=== PATIENT | male | born 1955 | race Hispanic/Latino ===

== ENCOUNTER 2021-03-14 12:52 | Emergency (ER) | payer MEDICAID ==
[~2021-03-14] VITALS: Ht 165.1 cm; Wt 86.2 kg
[2021-03-14] MEDS ORDERED: IOHEXOL-350 75 ML VIAL IV ONE (13:12)
[2021-03-14 13:14] LABS: BASOPHILS % (AUTO) 0.8 % (0.0-5.0); EOSINOPHILS % (AUTO) 1.6 % (0.0-8.0); HEMATOCRIT 43.9 % (42-54); MEAN CORPUSCULAR HEMOGLOBIN 29.5 pg (27.0-33.0); MEAN CORPUSCULAR HGB CONC 32.1 g/dL (32.0-36.0); MEAN CORPUSCULAR VOLUME 91.8 fL (79-99); MONOCYTES % (AUTO) 10.5 % (3.0-13.0); NEUTROPHILS % (AUTO) 45.7 % (40.0-77.0); PLATELET COUNT (AUTO) 219 K/uL (130-400); RED BLOOD CELL COUNT(AUTO) 4.78 MIL/uL (4.50-6.20); RED CELL DISTRIBUTION WIDTH 12.7 % (11.0-15.5); WHITE BLOOD COUNT (AUTO) 5.1 K/uL (4.8-10.8)
[2021-03-14] MEDS ORDERED: SODIUM CHLORIDE 0.9% 1000ML 1,000 ML IV SCH (13:15)
[2021-03-14 13:24] LABS: CREATININE 0.7 mg/dL (0.5-1.5)
[2021-03-14 13:29] LABS: ALBUMIN 4.1 g/dL (3.5-5.0); BILIRUBIN,TOTAL 0.6 mg/dL (0.2-1.0); TOTAL PROTEIN, SERUM 7.1 g/dL (6.0-8.3)
[2021-03-14 13:45] LABS: INR 0.98 (0.85-1.15); PROTHROMBIN TIME 10.7 SEC (9.6-11.6)
[2021-03-14 13:46] LABS: PARTIAL THROMBOPLASTIN TIME 25.1 SEC (26.3-35.5)
[2021-03-14 14:43] VITALS: BP 131/73
[2021-03-14] MEDS ORDERED: HYDROCODONE/ACETAMINOPHEN 5/325 MG TAB PO ONE (15:15)
[2021-03-14] MEDS ORDERED: ASPI-1197 PO (15:37)
[2021-03-14 15:50] VITALS: BP 127/67
== END 2021-03-14 16:43 | disposition home or self-care (01) ==
LOC: EDH 12:52
DX: R20.2 Paresthesia of skin (principal); R61 Generalized hyperhidrosis; R53.1 Weakness
CPT/HCPCS: 36415; 70450; 70496; 70498; 80053; 85025; 85610; 85730; 93005; 99285; Q9967

== ENCOUNTER 2024-06-16 18:35 | Emergency (ER) | payer OTHER ==
[~2024-06-16] VITALS: Ht 175.3 cm; Wt 85.3 kg
[~2024-06-16 18:35] MED LIST: ASPI-1197 PO; CELE200 PO; CEPH500T PO; IBUP-2077 PO; LISI10TA24 PO; LORA10TA7 PO; PROB1TAB2 PO; PROB500T26 PO; TAMS-1 PO
[2024-06-16 18:58] LABS: HEMATOCRIT 40.5 % (42-54); MEAN CORPUSCULAR HGB CONC 33.1 g/dL (32.0-36.0); MEAN CORPUSCULAR VOLUME 90.8 fL (79-99); RED BLOOD CELL COUNT(AUTO) 4.46 MIL/uL (4.50-6.20); RED CELL DISTRIBUTION WIDTH 12.8 % (11.0-15.5)
[2024-06-16 19:10] LABS: CREATININE 0.8 mg/dL (0.5-1.3); POTASSIUM 4.2 mmol/L (3.5-5.1)
[2024-06-16] MEDS ORDERED: LISI10TA24 PO (19:26)
[2024-06-16 19:42] VITALS: BP 116/60; PULSE 60; RESP 18; TEMP 98.5; O2SAT 100
== END 2024-06-16 20:00 | disposition home or self-care (01) ==
LOC: EDH 18:35
DX: I10 Essential (primary) hypertension (principal); R94.31 Abnormal electrocardiogram [ECG] [EKG]; M19.90 Unspecified osteoarthritis, unspecified site; E78.00 Pure hypercholesterolemia, unspecified; Z79.82 Long term (current) use of aspirin; Z79.899 Other long term (current) drug therapy; Z79.2 Long term (current) use of antibiotics; Z95.828 Presence of other vascular implants and grafts; Z96.652 Presence of left artificial knee joint
CPT/HCPCS: 36415; 80048; 84484; 85027; 93005

== ENCOUNTER 2024-11-03 20:56 | Emergency (ER) | payer OTHER, MEDICARE ==
[~2024-11-03] VITALS: Ht 175.3 cm; Wt 83.9 kg
[2024-11-03 21:58] LABS: BASOPHILS # (AUTO) 0.03 K/uL (0.00-0.20); BASOPHILS % (AUTO) 0.5 % (0.0-5.0); EOSINOPHILS # (AUTO) 0.06 K/uL (0.00-0.70); EOSINOPHILS % (AUTO) 1.1 % (0.0-8.0); HEMATOCRIT 39.2 % (42-54); IMMATURE GRANULOCYTE ABSOLUTE 0.01 K/uL (0-1); LYMPHOCYTES # (AUTO) 2.3 K/uL (1.0-4.8); LYMPHOCYTES % (AUTO) 41.1 % (21.0-51.0); MEAN CORPUSCULAR HEMOGLOBIN 30.6 pg (27.0-33.0); MEAN CORPUSCULAR HGB CONC 33.7 g/dL (32.0-36.0); MONOCYTES # (AUTO) 0.5 K/uL (0.1-1.0); MONOCYTES % (AUTO) 9.5 % (3.0-13.0); NEUTROPHILS # (AUTO) 2.6 K/uL (1.8-7.7); NEUTROPHILS % (AUTO) 47.6 % (40.0-77.0); PLATELET COUNT (AUTO) 205 K/uL (130-400); RED BLOOD CELL COUNT(AUTO) 4.31 MIL/uL (4.50-6.20); RED CELL DISTRIBUTION WIDTH 12.4 % (11.0-15.5); WHITE BLOOD COUNT (AUTO) 5.5 K/uL (4.8-10.8)
[2024-11-03 22:04] LABS: CREATININE 0.8 mg/dL (0.5-1.3); POTASSIUM 3.6 mmol/L (3.5-5.1)
--- NOTE | 2024-11-03 22:17 | EKG ---
[facility] Test Date: 2024-11-03 Test Time: 21:01:58 Pat Name: BEA LAWRENCE Department[facility] Room: Gender: M Business Relations Manager: [phone] : 1955 Requested By: RAYNA CAUSEY Order Number: [id number] Reading MD: Walter Pham Measurements Intervals [place] Rate: 49 P: 35 [place]: 179 QRS: -31 QRSD: 116 T: 24 QT: 452 QTc: 409 Interpretive Statements Sinus bradycardia Nonspecific intraventricular conduction delay Compared to ECG 06/16/2024 18:54:21 No significant changes Electronically Signed On 11-04-2024 17:16:32 [employer]ATEN PRESS OPERATOR by Walter Pham Please click the below link to view image of tracing.
[2024-11-04 00:20] LABS: APPEARANCE,URINE CLEAR (CLEAR); BILIRUBIN,URINE NEGATIVE (NEGATIVE); COLOR,URINE LIGHT-YELLOW (YELLOW); GLUCOSE, URINE (UA) NEGATIVE (NEGATIVE); KETONES,URINE NEGATIVE (NEGATIVE); LEUKOCYTE ESTERASE ,URINE NEGATIVE Leu/uL (NEGATIVE); NITRATE,URINE NEGATIVE (NEGATIVE); OCCULT BLOOD,URINE NEGATIVE (NEGATIVE); PH,URINE 5.5 (5.0-8.0); PROTEIN,URINE NEGATIVE (NEGATIVE); RBC,URINE 0-1 /HPF (0-1); UROBILINOGEN,URINE 0.2 mg/dL (0.2-1.0)
[2024-11-04 00:30] VITALS: BP 138/66; PULSE 88; RESP 16; TEMP 98.4; O2SAT 96
--- NOTE | 2024-11-04 00:30 | ERN ---
General Chief Complaint: Groin Pain Stated Complaint: LEFT GROIN DISCOMFORT Time Seen by MD: 21:39 History of Present Illness Initial Comments 68-year-old male came in for groin and thigh pain he had stents placed for peripheral vascular disease a year ago and was concerned with the there was any movement office stents. Patient states with today he was doing some yd work as well. Patient however is able to ambulate without any concerns and currently denies pain. Allergies: Coded Allergies: No Known Allergies (Unverified Allergy, Unknown, 03/14/21) Home Meds Active Scripts Lisinopril (Lisinopril) 10 Mg Tablet, 2 TAB PO DAILY for 30 Days, #60 TAB 0 Refills TWO CAPSULES BY MOUTH DAILY Prov:TAM LOZANO NP 06/16/24 Aspirin (Aspirin) 81 Mg Tab.chew, 81 MG PO DAILY for 30 Days, #30 TAB.CHEW Prov:GERMAN SWEET MD 03/14/21 Reported Medications Ibuprofen (Ibuprofen 800 mg Tab) 800 Mg Tab, 800 MG PO Q6H PRN for PAIN, TAB 06/04/23 Tamsulosin HCl (Flomax) 0.4 Mg Cap.er.24h, 0.4 MG PO HS, CAPSULE.DR 06/04/23 Probenecid (Probenecid) 500 Mg Tablet, 500 MG PO DAILY, TAB 06/04/23 Cephalexin (Cephalexin) 500 Mg Tablet, 500 MG PO DAILY, TAB 06/04/23 Colchicine/Probenecid (Probenecid-Colchicine Tabs) 1 Each Tablet, 0.6 EACH PO BID, TAB 06/04/23 Loratadine (Loratadine) 10 Mg Tablet, 10 MG PO DAILY, TAB 06/04/23 Lisinopril (Lisinopril) 10 Mg Tablet, 10 MG PO DAILY, TAB 06/04/23 Celecoxib (Celebrex 200Mg Cap) 200 Mg Cap, 200 MG PO DAILY, CAP 06/04/23 Past Medical History Past Medical History: Arthritis, High Cholesterol, Hypertension Medical History Other: GOUT Past Surgical History: Other, None Surgical History Other: RT LEG STENTS,LEFT GROIN STENT BACK SX, LEFT KNEE REPLACED,EYES, NECK Social History Social History: Negative, Lives with family ROS Dictation CONSTITUTIONAL: Negative except for HPI HEAD/FACE: Negative except for HPI EENT: Negative except for HPI RESPIRATORY: Negative except for HPI GASTROINTESTINAL/ABDOMINAL: Negative except for HPI GENITOURINARY: Negative except for HPI MUSCULOSKELETAL: Negative except for HPI INTEGUMENTARY: Negative except for HPI NEUROLOGICAL/PSYCH: Negative except for HPI HEMATOLOGIC/LYMPHATIC: Negative except for HPI All Systems Negative, Except as noted above. 13 point review of systems assessed and all negative except for above. Physical Exam Physical Exam Dictation Vital Signs reviewed General Appearance: Alert, oriented x 3, no acute distress, well developed, nourished. Head and Face: non-traumatic. Eyes: PERRL, pink conjunctivas, eyelid no trauma, anterior chamber with arcus senilis. Ears: Pinnas intact and no signs of trauma or erythema ear canals clear and no discharge TM no erythema Nose: No discharge, no bleeding. Oropharynx: Mouth normal, tongue pink, pharynx clear,no erythema, tonsils no exudates, no abscesses noted, mucous membrane moist Neck: Supple, non-tender, no thyromegaly, no masses, no JVD, no bruits Breast:Deferred Chest:No tenderness, no crepitus, no paradoxical movement, no retractions Lungs:Clear, well-ventilated, symmetric, no rales, no wheezing, no rhonchi, no stridor, good breath sounds bilaterally Heart: Regular rate, regular rhythm, no murmur, no gallops Vascular: no peripheral edema, Abdomen: Soft, positive bowel sounds, nondistended, no guarding, nontender, no rebound, no masses no hepatomegaly, no splenomegaly, no Jorgensen's sign, no hernias. Rectal: Deferred Genital: Deferred Neurological: Normal speech, motor function intact, sensory function intact Musculoskeletal: Neck nontender, full range of motion, back nontender, full range of motion, Extremities: nontender, full range of motion Skin: Color pink, dry, no turgor, no rash, no lacerations, no abrasions, no contusions. Lymphatic: Deferred Results Laboratory and Microbiology Lab and Micro Result Laboratory Tests Test 11/03/24 21:15 11/04/24 00:00 White Blood Count 5.5 K/uL (4.8-10.8) Red Blood Count 4.31 MIL/uL (4.50-6.20) L Hemoglobin 13.2 g/dL (14.0-18.0) L Hematocrit 39.2 % (42-54) L Mean Corpuscular Volume 91.0 fL (79-99) Mean Corpuscular Hemoglobin 30.6 pg (27.0-33.0) Mean Corpuscular Hemoglobin Concent 33.7 g/dL (32.0-36.0) Red Cell Distribution Width 12.4 % (11.0-15.5) Platelet Count 205 K/uL (130-400) Mean Platelet Volume 10.2 fL (7.5-10.5) Immature Granulocyte % (Auto) 0.2 % (0-1) Neutrophils (%) (Auto) 47.6 % (40.0-77.0) Lymphocytes (%) (Auto) 41.1 % (21.0-51.0) Monocytes (%) (Auto) 9.5 % (3.0-13.0) Eosinophils (%) (Auto) 1.1 % (0.0-8.0) Basophils (%) (Auto) 0.5 % (0.0-5.0) Neutrophils # (Auto) 2.6 K/uL (1.8-7.7) Lymphocytes # (Auto) 2.3 K/uL (1.0-4.8) Monocytes # (Auto) 0.5 K/uL (0.1-1.0) Eosinophils # (Auto) 0.06 K/uL (0.00-0.70) Basophils # (Auto) 0.03 K/uL (0.00-0.20) Absolute Immature Granulocyte (auto 0.01 K/uL (0-1) Nucleated Red Blood Cells 0.0 % (0.0-0.19) Sodium Level 136 mmol/L (136-145) Potassium Level 3.6 mmol/L (3.5-5.1) Chloride Level 99 mmol/L (101-111) L Carbon Dioxide Level 30 mmol/L (21-32) Blood Urea Nitrogen 15 mg/dL (7-18) Creatinine 0.8 mg/dL (0.5-1.3) Glomerular Filtration Rate Calc 98 mL/min (>90) Random Glucose 102 mg/dL (70-105) Total Calcium 8.9 mg/dL (8.5-10.1) Troponin I High Sensitivity 12 ng/L (4-75) Urine Color LIGHT-YELLOW (YELLOW) Urine Appearance CLEAR (CLEAR) Urine pH 5.5 (5.0-8.0) Urine Specific [place] 1.010 (1.001-1.031) Urine Protein NEGATIVE mg/dL (NEGATIVE) Urine Glucose (UA) NEGATIVE mg/dL (NEGATIVE) Urine Ketones NEGATIVE mg/dL (NEGATIVE) Urine Occult Blood NEGATIVE (NEGATIVE) Urine Nitrate NEGATIVE (NEGATIVE) Urine Bilirubin NEGATIVE mg/dL (NEGATIVE) Urine Urobilinogen 0.2 mg/dL (0.2-1.0) Urine Leukocyte Esterase NEGATIVE Kika/uL Urine RBC 0-1 /HPF (0-1) Urine WBC None /HPF (0-1) Urine Bacteria None /HPF (None Seen) MDM MDM: Differential diagnosis: There are no social concerns with this patient. Prescription drug management Prescriptions will include: Medical management and examination interpretation discussions were had by me with other qualified healthcare professionals as indicated for the patient's care. ED Course Orders Procedure Category Date Status Time 12 Lead Ekg Tracing- EKG 11/03/24 Complete Technical 20:58 Troponin I High LAB 11/03/24 Complete Sensitivity 20:58 Cbc With Differential LAB 11/03/24 Complete 21:44 Basic Metabolic Panel LAB 11/03/24 Complete 21:44 Urinalysis LAB 11/03/24 Complete W/Microscopic 23:52 Vital Signs Date Time Temp Pulse Resp B/P (MAP) Pulse Ox O2 Delivery O2 Flow Rate FiO2 11/03/24 22:27 98.2 92 16 140/57 96 Room Air* 0 21 11/03/24 20:58 97.9 57 16 134/73 99 Room Air DX & DISP Disposition: Discharge Departure Impression: Primary Impression: Thigh pain Additional Impression: Groin pain Condition: Stable Referrals: JOHN IRAHETA MD (PCP) RAYNA CAUSEY MD Nov 04, 2024 00:30
== END 2024-11-04 00:32 | disposition home or self-care (01) ==
LOC: EDH 20:56
DX: M79.659 Pain in unspecified thigh (principal); R10.32 Left lower quadrant pain; E78.00 Pure hypercholesterolemia, unspecified; I10 Essential (primary) hypertension; M19.90 Unspecified osteoarthritis, unspecified site; Z79.1 Long term (current) use of non-steroidal anti-inflammatories (NSAID); Z79.82 Long term (current) use of aspirin; Z79.899 Other long term (current) drug therapy
CPT/HCPCS: 36415; 80048; 81001; 84484; 85025; 93005; 99284